=== PATIENT | female | born 2000 | race Caucasian/White ===

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

== ENCOUNTER 2021-02-05 08:58 | Emergency (ER) | payer BC, MEDICAID ==
[2021-02-05 10:06] LABS: CORONAVIRUS COVID-19 NAA NEGATIVE (NEGATIVE)
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
== END 2021-02-05 10:36 | disposition home or self-care (01) ==
LOC: DL.ED 08:58
DX: J10.1 Influenza due to other identified influenza virus with other respiratory manifestations (principal); Z72.0 Tobacco use; Z20.822 Contact with and (suspected) exposure to COVID-19
CPT/HCPCS: 0240U; 99283

== ENCOUNTER 2021-07-23 12:02 | Emergency (ER) | payer BC, MEDICAID ==
[2021-07-23] MEDS ORDERED: Albuterol 0.083% 2.5 MG/3 ML Neb Soln NEB ONE (12:27)
== END 2021-07-23 13:44 | disposition home or self-care (01) ==
LOC: DL.ED 12:02
DX: J45.21 Mild intermittent asthma with (acute) exacerbation (principal); J01.90 Acute sinusitis, unspecified; B37.0 Candidal stomatitis; F17.210 Nicotine dependence, cigarettes, uncomplicated
CPT/HCPCS: 87210; 94640; 99283-25; J7613-GY

== ENCOUNTER 2021-10-27 15:32 | Emergency (ER) | payer MEDICAID ==
[2021-10-27] MEDS ORDERED: Sodium Chloride 0.9% 10 ML Syringe FLUSH PRN (15:43)
[2021-10-27 16:19] LABS: ANION GAP 13.7 mEq/L (7-13); CHLORIDE,CL 103 mmol/L (98-107); SODIUM,NA 137 mmol/L (136-145)
[2021-10-27 16:21] LABS: ESTIMATED GFR 102 mL/min (>=60)
== END 2021-10-27 16:44 | disposition home or self-care (01) ==
LOC: DL.ED 15:32
DX: O20.0 Threatened abortion (principal)
CPT/HCPCS: 36415; 80053; 84702; 84703; 85025; 99283; 99284

== ENCOUNTER 2022-01-06 08:49 | Emergency (ER) | payer MEDICAID | END 2022-01-06 09:42 | disposition left against medical advice (07) | LOC: DL.ED 08:49 | DX: Z53.21 Procedure and treatment not carried out due to patient leaving prior to being seen by health care provider (principal) ==

== ENCOUNTER 2022-01-22 12:03 | Emergency (ER) | payer MEDICAID ==
[2022-01-22 13:49] LABS: CORONAVIRUS COVID-19 NAA NEGATIVE (NEGATIVE); RESPIRATORY SYNCYTIAL VIR NAA NEGATIVE (NEGATIVE)
[2022-01-22] MEDS ORDERED: diphenhydrAMINE 50 MG/ML SDV IVPUSH ONE (14:06)
[2022-01-22] MEDS ORDERED: Sodium Chloride 0.9% 1,000 ML IV ONE (14:06)
[2022-01-22] MEDS ORDERED: Sodium Chloride 0.9% 10 ML Syringe FLUSH PRN (14:06)
[2022-01-22] MEDS ORDERED: Metoclopramide 10 MG/2 ML SDV IVPUSH ONE (14:06)
[2022-01-22 15:20] LABS: ANION GAP 18.4 mEq/L (7-13)
== END 2022-01-22 16:25 | disposition home or self-care (01) ==
LOC: DL.ED 12:03
DX: E86.0 Dehydration (principal); O99.281 Endocrine, nutritional and metabolic diseases complicating pregnancy, first trimester; O21.9 Vomiting of pregnancy, unspecified; O99.511 Diseases of the respiratory system complicating pregnancy, first trimester; J45.909 Unspecified asthma, uncomplicated; Z20.822 Contact with and (suspected) exposure to COVID-19; Z3A.11 11 weeks gestation of pregnancy
CPT/HCPCS: 0241U; 36415; 80053; 81001; 82150; 83690; 84702; 85025; 96361; 96374; 96375; 99284-25; J1200; J2765; J3490; J7030

== ENCOUNTER 2022-01-29 07:17 | Emergency (ER) | payer MEDICAID ==
[2022-01-29] MEDS ORDERED: Sodium Chloride 0.9% 1,000 ML IV ONE (07:43)
[2022-01-29 08:09] LABS: ANION GAP 12.6 mEq/L (7-13); CHLORIDE,CL 102 mmol/L (98-107); SODIUM,NA 135 mmol/L (136-145)
[2022-01-29 08:17] LABS: ESTIMATED GFR 128 mL/min (>=60)
== END 2022-01-29 08:43 | disposition home or self-care (01) ==
LOC: DL.ED 07:17
DX: R55 Syncope and collapse (principal); J45.909 Unspecified asthma, uncomplicated; W10.8XXA Fall (on) (from) other stairs and steps, initial encounter
CPT/HCPCS: 36415; 80053; 85025; 96360; 99284; J7030

== ENCOUNTER 2022-07-08 00:11 | Inpatient (IN) | payer OTHER, MEDICAID ==
[2022-07-08 01:09] LABS: APPEARANCE,URINE CLEAR (CLEAR); BILIRUBIN,URINE NEGATIVE (NEGATIVE); COLOR,URINE YELLOW (YELLOW); GLUCOSE,URINE NEGATIVE (NEGATIVE); KETONES,URINE NEGATIVE (NEGATIVE); LEUKOCYTE ESTERASE,URINE NEGATIVE (NEGATIVE); NITRITE,URINE NEGATIVE (NEGATIVE); OCCULT BLOOD,URINE NEGATIVE (NEGATIVE); PH,URINE 5.5 (5.0-9.0); PROTEIN,URINE NEGATIVE (NEGATIVE); UROBILINOGEN,URINE 0.2 mg/dL (0.2-1.0)
[2022-07-08] MEDS ORDERED: NIFEdipine 10 MG Cap PO SCH ×2 (01:30→09:00)
[2022-07-08] MEDS ORDERED: Lactated Ringers 1,000 ML IV ONE ×2 (01:43→03:33)
[2022-07-08] MEDS ORDERED: NIFEdipine 10 MG Cap PO ONE ×4 (01:43→02:45)
[2022-07-08] MEDS ORDERED: Ondansetron 4 MG/2 ML SDV IVPUSH ONE (03:03)
[2022-07-08 03:07] LABS: HEMATOCRIT 37.9 % (37.0-47.0); HEMOGLOBIN 13.2 g/dL (12.0-16.0); MEAN CORPUSCULAR HEMOGLOBIN 28.4 pg (27.0-34.0); MEAN CORPUSCULAR HGB CONC 34.8 g/dL (33.0-35.0); MEAN CORPUSCULAR VOLUME 81.7 fL (80-100); RED BLOOD CELL COUNT 4.64 10^6/uL (4.2-5.4); WHITE BLOOD CELL COUNT,WBC 12.9 10^3/uL (5.0-10.0)
[2022-07-08] MEDS ORDERED: fentaNYL 100 MCG/2 ML SDV ONE (03:20)
[2022-07-08] MEDS ORDERED: Bupivacaine 0.25% 10 ML SDV ONE (03:20)
[2022-07-08] MEDS ORDERED: Lactated Ringers 1,000 ML IV SCH ×2 (03:30→03:45)
[2022-07-08] MEDS ORDERED: Methylergonovine 0.2 MG/1 ML Amp IM PRN (03:33)
[2022-07-08] MEDS ORDERED: Acetaminophen 325 MG Tab PO PRN ×2 (03:33→11:28)
[2022-07-08] MEDS ORDERED: Tranexamic Acid 1,000 MG in Sodium Chloride 0.9% 100 ML IV PRN ×2 (03:33→11:28)
[2022-07-08] MEDS ORDERED: Lidocaine 1% 30 ML SDV INJECT PRN (03:33)
[2022-07-08] MEDS ORDERED: Misoprostol 400 MCG (4 X 100 MCG TAB) RECTAL PRN ×2 (03:33→11:28)
[2022-07-08] MEDS ORDERED: Carboprost Tromethamine 250 MCG/1 ML Amp IM PRN ×2 (03:33→11:28)
[2022-07-08] MEDS: Ropivacaine 200 MG in Premix Bag 1 BAG EPIDUR SCH ×2 (03:37→10:00)
[2022-07-08] MEDS ORDERED: Promethazine 25 MG/ML SDV IM PRN (03:39)
[2022-07-08] MEDS ORDERED: Naloxone 2 MG/2 ML Syringe IVPUSH PRN (03:39)
[2022-07-08] MEDS ORDERED: ePHEDrine 50 MG/ML SDV IVPUSH PRN ×2 (03:39→03:46)
[2022-07-08] MEDS ORDERED: Oxytocin/Normal Saline 30 UNIT/500 ML BAG IV SCH (03:45)
[2022-07-08] MEDS ORDERED: Lactated Ringers 500 ML IV SCH (03:45)
[2022-07-08] MEDS ORDERED: Phenylephrine HCl In 0.9% NaCl 1 MG/10 ML Syringe IVPUSH PRN (03:46)
[2022-07-08 03:54] LABS: AMPHETAMINES,URINE NEGATIVE (NEGATIVE); BARBITURATES,URINE NEGATIVE (NEGATIVE); BENZODIAZEPINE,URINE NEGATIVE (NEGATIVE); MDMA (ECSTASY), URINE NEGATIVE (NEGATIVE); METHADONE,URINE NEGATIVE (NEGATIVE); METHAMPHETAMINES,URINE NEGATIVE (NEGATIVE); OPIATES,URINE NEGATIVE (NEGATIVE); OXYCODONE,URINE NEGATIVE (NEGATIVE); PHENCYCLIDINE,URINE NEGATIVE (NEGATIVE); TCA,URINE NEGATIVE (NEGATIVE)
[2022-07-08] MEDS ORDERED: Sodium Chloride 0.9% 10 ML Syringe FLUSH SCH (09:00)
[2022-07-08] MEDS ORDERED: Witch Hazel Medicated Pads 100/Jar TOP PRN (11:28)
[2022-07-08] MEDS ORDERED: Sodium Chloride 0.9% 10 ML Syringe FLUSH PRN (11:28)
[2022-07-08] MEDS ORDERED: Benzocaine/Menthol 20%-0.5% Spray 78 GM Cannister TOP PRN (11:28)
[2022-07-08] MEDS ORDERED: Oxytocin 10 Units/1 ML SDV IM PRN (11:28)
[2022-07-08] MEDS ORDERED: Simethicone 80 MG Tab.Chew PO PRN (11:28)
[2022-07-08] MEDS: Ibuprofen 800 MG Tab PO PRN ×2 (14:34→22:31)
[2022-07-08] MEDS: Docusate Sodium 100 MG Cap PO PRN (19:30)
[2022-07-09 06:11] LABS: HEMOGLOBIN 12.5 g/dL (12.0-16.0); MEAN CORPUSCULAR HEMOGLOBIN 28.6 pg (27.0-34.0); MEAN CORPUSCULAR HGB CONC 34.7 g/dL (33.0-35.0); MEAN CORPUSCULAR VOLUME 82.4 fL (80-100); RED BLOOD CELL COUNT 4.37 10^6/uL (4.2-5.4); WHITE BLOOD CELL COUNT,WBC 14.2 10^3/uL (5.0-10.0)
[2022-07-09] MEDS: Prenatal Multivitamin with Calcium/Folic Acid/Iron Tab PO SCH (08:21)
[2022-07-09] MEDS: Docusate Sodium 100 MG Cap PO PRN (08:21)
[2022-07-09] MEDS: Ibuprofen 800 MG Tab PO PRN (08:21)
[2022-07-09] MEDS ORDERED: Measles, Mumps & Rubella Vaccine 0.5 ML SDV SUBCUT ONE (09:00)
[2022-07-10] MEDS: Docusate Sodium 100 MG Cap PO PRN ×2 (00:17→11:23)
[2022-07-10] MEDS: Ibuprofen 800 MG Tab PO PRN ×2 (00:18→11:21)
[2022-07-10] MEDS: Prenatal Multivitamin with Calcium/Folic Acid/Iron Tab PO SCH (11:22)
== END 2022-07-10 12:30 | disposition home or self-care (01) | DRG 806 ==
LOC: DL.OBCHECK 00:11 → DL.OB 02:29 → OBSVTOIN 11:04
PROVIDERS: ADMIT Family Medicine; ATTEND Family Medicine
PROC: 10D07Z6 Extraction of Products of Conception, Vacuum, Via Natural or Artificial Opening (ICD-10-PCS; principal; 2022-07-08)
PROC: 10907ZC Drainage of Amniotic Fluid, Therapeutic from Products of Conception, Via Natural or Artificial Opening (ICD-10-PCS; 2022-07-08)
PROC: 0UQMXZZ Repair Vulva, External Approach (ICD-10-PCS; 2022-07-08)
DX: O60.14X0 Preterm labor third trimester with preterm delivery third trimester, not applicable or unspecified (principal); O99.324 Drug use complicating childbirth; Z37.0 Single live birth; F12.90 Cannabis use, unspecified, uncomplicated; O70.0 First degree perineal laceration during delivery; O99.334 Smoking (tobacco) complicating childbirth; F17.210 Nicotine dependence, cigarettes, uncomplicated; Z3A.35 35 weeks gestation of pregnancy
CPT/HCPCS: 01967; 36415; 51702; 59409; 80305-QW; 81003; 85027; 87210; 90707; A9270-GY; J2405; J2590; J2795; J7120